=== PATIENT | female | born 1995 | race Caucasian/White ===

== ENCOUNTER → 2017-01-24 | Outpatient (CLI) | payer BC | END | disposition disaster alternative care site (69) | LOC: GRAD 01-22 10:00 | DX: M76.61 Achilles tendinitis, right leg (principal); S86.011D Strain of right Achilles tendon, subsequent encounter; X58.XXXD Exposure to other specified factors, subsequent encounter ==

== ENCOUNTER → 2017-05-21 | Outpatient (CLI) | payer BC ==
--- NOTE | ~2017-05-21 | ENPV ---
Vascular Lower Extremities DVT Study Procedure Demographics Patient Name WENDY HERNÁNDEZ Date of Study 05/21/2017 Patient Number [id number] Gender Female Date of 1995 Age 22 Visit Number [id number] Height Weight Number Room Number BSA BMI Referring Dansam Schilling APRN Interpreting Jerrell Rivera MD Physician Physician Physician Bernard Jones Assembler Knife Physician Rhys SINGH Powertrain Design Engineer Cristela Rhys, [facility] Marga Conclusions Summary No evidence of deep vein thrombosis or superficial thrombophlebitis in the right lower extremity. Right veins below the knee not imaged due to patient having a cast on her right lower leg. Procedure Type of Study: Veins:Lower Extremities DVT Study, Lower Extremity Right. Indications for Study:Pain in Limb. Appropriate Use Criteria:9 Patient Status:STAT. Study Location:Vascular Lab. Technical Quality:Adequate visualization. Velocities are measured in cm/s ; Diameters are measured in cm Right Lower Extremities DVT Study Measurements Right 2D and Doppler Measurements + + + + +------+------+ + !Location !Visualized!Compressibility!Thrombosis!Signal!Reflux!Reflux ! ! ! ! ! ! ! !(sec) ! + + + + +------+------+ + !GSV Thigh !Yes !Yes !None !Phasic! ! ! + + + + +------+------+ + !Common !Yes !Yes !None !Phasic! ! ! !Femoral ! ! ! ! ! ! ! + + + + +------+------+ + !Prox !Yes !Yes !None !Phasic! ! ! !Femoral ! ! ! ! ! ! ! + + + + +------+------+ + !Mid Femoral!Yes !Yes !None !Phasic! ! ! + + + + +------+------+ + !Dist !Yes !Yes !None !Phasic! ! ! !Femoral ! ! ! ! ! ! ! + + + + +------+------+ + !Popliteal !Yes !Yes !None !Phasic! ! ! + + + + +------+------+ + !Gastroc !Yes !Yes !None !Phasic! ! ! + + + + +------+------+ + Signature dtt: KAITLYNN PEPPER: 05/21/17 1936 Physician Self Edit
== END | disposition disaster alternative care site (69) ==
LOC: GVAS 19:20
DX: R10.9 Unspecified abdominal pain (principal)